=== PATIENT | female | born 1975 | race African-American/Black ===

== ENCOUNTER 2021-09-04 11:40 | Emergency (ER) | payer OTHER ==
[2021-09-04] VITALS (7 sets, daily range): BP systolic 134–158; BP diastolic 82–100
[~2021-09-04] VITALS: Ht 175.3 cm; Wt 110.0 kg
[~2021-09-04 11:40] MED LIST: ULTRAM50 M1 PO
[2021-09-04] MEDS ORDERED: LOSARTAN POTASS25 MG PO (12:40)
[2021-09-04] MEDS ORDERED: ULTRAM50 M1 PO (13:32)
[2021-09-04] MEDS ORDERED: NAPROXEN500 MG PO (13:32)
== END 2021-09-04 14:00 | disposition home or self-care (01) | DRG 563 ==
LOC: ED 11:40
DX: S93.401A Sprain of unspecified ligament of right ankle, initial encounter (principal); I10 Essential (primary) hypertension; F17.200 Nicotine dependence, unspecified, uncomplicated; X50.0XXA Overexertion from strenuous movement or load, initial encounter